=== PATIENT | female | born 1960 | race Caucasian/White ===

== ENCOUNTER 2016-08-07 10:31 | Emergency (ER) | payer BC, OTHER ==
[2016-08-07 10:46] VITALS: BP 146/79
[2016-08-07] MEDS ORDERED: Sodium Chloride 0.9% 10 ML Syringe FLUSH PRN (10:57)
[2016-08-07] MEDS ORDERED: Iopamidol 612 MG/ML 75 ML Bottle IVPUSH ONE (10:57)
--- NOTE | 2016-08-07 10:58 | EDM.PDOC ---
<Misty Herrera - Last Filed: 08/07/16 13:52> ED HPI GI/ABDOMINAL - General Chief Complaint: Abdominal Pain Stated Complaint: [id number] STOMACH CRAMPING HARD SPOT THROWING UP Time Seen by Provider: 08/07/16 10:53 Source of Information: Reports: Patient History Limitations: Reports: No limitations - History of Present Illness INITIAL COMMENTS - FREE TEXT/NARRATIVE: Patient presents to the ER with c/o N/V since . She states yesterday she began having more stomach pains and felt a hard tender area to the RLQ. 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 Admits to chills but no fever. She admits SOB at times when the abdomen is painful, but denies chest pain. She states she last had a bowel movement yesterday. She states she had her give her a Fleet's enema this morning with very little results of mucous stool. Symptom Onset Date: 08/04/16 Timing/Duration: Reports: Getting worse Location: RLQ Quality: Reports: fullness Severity: moderate Associated Symptoms (-Female): Reports: nausea/vomiting - Related Data Allergies/ADRs: Allergies Allergy/AdvReac Type Severity Reaction Status Date / Time erythromycin base Allergy Cannot Verified 08/07/16 11:31 Remember Home Meds: Home Meds Levothyroxine Sodium [Levothyroxine Sodium] 125 mcg PO DAILY 04/23/14 [History] Losartan Potassium [Losartan Potassium] 25 mg PO DAILY 04/23/14 [History] Raloxifene HCl [Raloxifene HCl] 60 mg PO DAILY 04/23/14 [History] atorvaSTATin Calcium [Atorvastatin Calcium] 80 mg PO DAILY 04/23/14 [History] glyBURIDE [Glyburide] 5 mg PO DAILY 04/23/14 [History] metFORMIN [Glucophage] 1,000 mg PO BID 04/23/14 [History] Social & Family History - Tobacco Use Smoking Status *Q: Never Smoker Second Hand Smoke Exposure: No - Alcohol Use Days Per Week of Alcohol Use: 0 - Recreational Drug Use Recreational Drug Use: No ED ROS GENERAL - Review of Systems Review Of Systems: See Below Constitutional: Reports: chills, decreased appetite HEENT: Reports: No symptoms Respiratory: Reports: shortness of breath Cardiovascular: Reports: No symptoms Endocrine: Reports: no symptoms GI/Abdominal: Reports: Abdominal pain, Decreased appetite, Mucous in stool, Vomiting : Reports: no symptoms Musculoskeletal: Reports: no symptoms Skin: Reports: no symptoms Neurological: Reports: no symptoms Psychiatric: Reports: No symptoms Hematologic/Lymphatic: Reports: no symptoms Immunologic: Reports: no symptoms ED EXAM, GI/ABD - Physical Exam Exam: See Below Exam Limited By: No limitations General Appearance: alert, WD/WN, no apparent distress Ears: normal external exam, hearing grossly normal Nose: normal inspection Throat/Mouth: Normal inspection, Normal voice, No airway compromise Head: atraumatic, normocephalic Neck: normal inspection Respiratory/Chest: no respiratory distress, lungs clear, normal breath sounds, no accessory muscle use, chest non-tender Cardiovascular: normal peripheral pulses, regular rate, rhythm, no JVD, no murmur, no rub GI/Abdominal: normal bowel sounds, soft, tenderness, guarding (Female) Exam: Deferred Rectal (Female) Exam: Deferred Back Exam: normal inspection, full range of motion, NT Extremities: normal inspection, normal range of motion, non-tender, normal capillary refill, no pedal edema Neurological: alert, oriented, CN II-XII intact, normal cognition, normal gait, normal reflexes, no motor/sensory deficits Psychiatric: normal affect, normal mood Skin Exam: Warm, Dry, Intact, Normal color, No rash, Other (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 DIRECTED Care 08/07/16 10:58 Active Abdomen 2V AP Flat Upright [CR] Stat Exams 08/07/16 10:53 Stop Req Abdomen Pelvis w Cont [CT] Stat Exams 08/07/16 10:55 Ordered LACTIC ACID [CHEM] Stat Lab 08/07/16 14:00 Received Sodium Chloride 0.9% [Saline Flush] Med 08/07/16 10:57 Active 10 ml FLUSH ASDIRECTED PRN Nasogastric Orogastric Tube Insertion [OM.PC] Routine Oth 08/07/16 12:23 Ordered Peripheral IV Insertion Adult [OM.PC] Stat Oth 08/07/16 10:57 Ordered Medication Orders Sodium Chloride (Saline Flush) 10 ml FLUSH ASDIRECTED PRN PRN Reason: Keep Vein Open Last Admin: 08/07/16 11:40 Dose: 10 ml Labs: Laboratory Tests 08/07/16 08/07/16 08/07/16 Range/Units 11:05 11:05 11:25 WBC 10.5 H (5.0-10.0) 10^3/uL RBC 4.99 (4.2-5.4) 10^6/uL Hgb 14.8 (12.0-16.0) g/dL Hct 45.1 (37.0-47.0) % MCV 90.4 (80-100) fL MCH 29.7 (27.0-34.0) pg MCHC 32.8 L (33.0-35.0) g/dL Plt Count 267 (150-450) 10^3/uL Neut % (Auto) 83.5 H (42.2-75.2) % Lymph % (Auto) 10.4 L (20.5-50.1) % [place] % (Auto) 5.5 (2-8) % Eos % (Auto) 0.3 L (1.0-3.0) % Baso % (Auto) 0.3 (0.0-1.0) % Sodium 138 (135-145) mmol/L Potassium 4.0 (3.6-5.0) mmol/L Chloride 103 (101-111) mmol/L Carbon Dioxide 26.0 (21.0-31.0) mmol/L Anion Gap 13.0 BUN 18 (7-18) mg/dL Creatinine 0.6 (0.6-1.3) mg/dL Est Cr Clr Drug Dosing 76.99 mL/min Estimated GFR (MDRD) > 60 BUN/Creatinine Ratio 30.00 Glucose 204 H (74-105) mg/dL Calcium 8.8 (8.4-10.2) mg/dl Total Bilirubin 0.6 (0.2-1.0) mg/dL AST 17 (10-42) IU/L ALT 28 (10-60) IU/L Alkaline Phosphatase 69 (42-121) IU/L Total Protein 6.3 L (6.7-8.2) g/dl Albumin 3.8 (3.2-5.5) g/dl Globulin 2.5 Albumin/Globulin Ratio 1.52 Urine Color Dark yellow (YELLOW) Urine Appearance Slightly cloudy (CLEAR) Urine pH 5.5 (5.0-9.0) Ur Specific [place] >= 1.030 (1.005-1.030) Urine Protein 30 H (NEGATIVE) Urine Glucose (UA) 100 H (NEGATIVE) Urine Ketones 80 H (NEGATIVE) Urine Occult Blood Trace-intact H (NEGATIVE) Urine Nitrite Negative (NEGATIVE) Urine Bilirubin Small H (NEGATIVE) Urine Urobilinogen 0.2 (0.2-1.0) mg/dL Ur Leukocyte Esterase Negative (NEGATIVE) Urine RBC 0-5 /HPF Urine WBC 0-5 (0-5/HPF) /HPF Ur Epithelial Cells Rare /HPF Urine Bacteria Rare (0-FEW/HPF) /HPF Meds: Medications Generic Name Dose Route Start Last Admin Trade Name Freq PRN Reason Stop Dose Admin Sodium Chloride 10 ml 08/07/16 10:57 08/07/16 11:40 Saline Flush FLUSH 10 ml ASDIRECTED PRN Administration Keep Vein Open Discontinued Medications Generic Name Dose Route Start Last Admin Trade Name Freq PRN Reason Stop Dose Admin Hydromorphone HCl 1 mg 08/07/16 12:23 08/07/16 12:38 Dilaudid IM 08/07/16 12:24 1 mg ONETIME ONE Administration Sodium Chloride 1,000 mls @ 999 mls/hr 08/07/16 12:11 08/07/16 13:52 Normal Saline IV 08/07/16 13:11 999 mls/hr .BOLUS ONE Administration Iopamidol 75 ml 08/07/16 10:57 Isovue-300 (61%) IVPUSH 08/07/16 10:58 ONETIME ONE Lorazepam 1 mg 08/07/16 12:22 08/07/16 13:52 Ativan IVPUSH 08/07/16 12:23 1 mg ONETIME ONE Administration Departure - Departure Disposition: DC/Tfer to Acute Hospital 02 Clinical Impression: Small bowel obstruction, Incarcerated hernia Abdominal pain Qualifiers: Abdominal location: right lower quadrant Qualified Code(s): R10.31 - Right lower quadrant pain Forms: ED Department Discharge, Interfacility Transfer EMTALA - My Orders Last 24 Hours: My Active Orders 08/07/16 14:00 LACTIC ACID [CHEM] Stat - Assessment/Plan Last 24 Hours: My Active Orders 08/07/16 14:00 LACTIC ACID [CHEM] Stat <Walter Perezian - Last Filed: 08/07/16 14:06> ED HPI GI/ABDOMINAL - History of Present Illness Context: Denies: sick contact, bad/questionable food, out of country travel, recent surgery, recent trauma, lifting, activity/exercise Past Medical History Cardiovascular History: Reports: High cholesterol, Hypertension Endocrine/Metabolic History: Reports: Diabetes, type II, Hypothyroidism, Obesity /BMI 30+, Other (see below) (Lilly's syndrome) Social & Family History - Family History Family Medical History: Noncontributory - Living Situation & Occupation Living situation: Reports: , with spouse Occupation: employed Course - Radiology Interpretation Free Text/Narrative:: CT abdomen and pelvis: Per rad report shows small bowel obstruction caused by incarcerated hernia through the anterior right pelvic wall. Evidence of slowed motility in the obstructed loops. Bowel thickening in the rectosigmoid may represent colitis versus decompressed bowel. Spondylilisthesis. - Re-Assessments/Exams Free Text/Narrative Re-Assessment/Exam: 08/07/16 11:48 FOR THIS ENCOUNTER THE PATIENT WAS SEEN IN CONJUNCTION WITH [facility] STUDENT MISTY HERRERA. ALL PATIENT CARE AND/OR PROCEDURE(S), DIAGNOSTIC ORDERS, MEDICATION(S) AND TREATMENT ORDERS, DISPOSITION ORDERS/PLANNING, AND DISCHARGE/FOLLOW UP INSTRUCTIONS WERE UNDER MY DIRECT SUPERVISION. gbd Departure - Departure Time of Disposition: 13:44 Condition: serious - My Orders Last 24 Hours: My Active Orders 08/07/16 14:00 LACTIC ACID [CHEM] Stat - Assessment/Plan Last 24 Hours: My Active Orders 08/07/16 14:00 LACTIC ACID [CHEM] Stat
[2016-08-07 11:29] LABS: CHLORIDE,CL 103 mmol/L (101-111); SODIUM,NA 138 mmol/L (135-145)
[2016-08-07] MEDS ORDERED: Sodium Chloride 0.9% 1,000 ML IV ONE (12:11)
[2016-08-07] MEDS ORDERED: LORazepam 2 MG/ML Syringe IVPUSH ONE (12:22)
[2016-08-07] MEDS ORDERED: HYDROmorphone 1 MG/ML Syringe IM ONE (12:23)
== END 2016-08-07 14:55 ==
LOC: DL.ED 10:31
DX: K43.6 Other and unspecified ventral hernia with obstruction, without gangrene (principal); I10 Essential (primary) hypertension; E78.00 Pure hypercholesterolemia, unspecified; E11.9 Type 2 diabetes mellitus without complications; Z79.84 Long term (current) use of oral hypoglycemic drugs; E03.9 Hypothyroidism, unspecified; E66.9 Obesity, unspecified; Z68.30 Body mass index [BMI] 30.0-30.9, adult; Q96.9 Turner's syndrome, unspecified; Z79.899 Other long term (current) drug therapy; Z88.1 Allergy status to other antibiotic agents
CPT/HCPCS: 36415; 74177; 80053; 81001; 83605; 85025; 96361; 96374; 96375; 99285; J1170; J2060; J7030; J7050; Q9967

== ENCOUNTER 2019-07-26 16:36 | Emergency (ER) | payer OTHER ==
[2019-07-26 17:46] VITALS: BP 121/80; PULSE 77
--- NOTE | 2019-07-26 17:54 | EDM.PDOC ---
<Vinicio Olivera - Last Filed: 07/26/19 19:09> ED HPI GENERAL MEDICAL PROBLEM - General Chief Complaint: Abdominal Pain Stated Complaint: UPSET STOMACH, LOOSE MAURA Time Seen by Provider: 07/26/19 17:40 Source of Information: Reports: Patient History Limitations: Reports: No Limitations - History of Present Illness INITIAL COMMENTS - FREE TEXT/NARRATIVE: This 59 yo female patient was sent to the ED from [facility] due to left lower abdominal pain. The patient reports her symptoms started 2 weeks ago, but have been getting worse over the past several days. The patient reports her symptoms are similar to her symptoms when she had a hernia. The patient reports she eventually had her hernia operated on. The patient reports she was having loose bowel movements today. Duration: Week(s):, Constant, Getting Worse Location: Reports: Abdomen (LLQ) Quality: Reports: Ache, Dull Severity: Moderate Improves with: Reports: None Worsens with: Reports: None Context: Reports: Other Abdomen Pain Score (Numeric/FACES): 8 - Related Data Allergies Allergy/AdvReac Type Severity Reaction Status Date / Time erythromycin base Allergy Cannot Verified 07/26/19 17:46 Remember Home Meds: Home Meds Levothyroxine Sodium 125 mcg PO DAILY 04/23/14 [History] Losartan Potassium 25 mg PO DAILY 04/23/14 [History] Raloxifene HCl 60 mg PO DAILY 04/23/14 [History] atorvaSTATin Calcium [Atorvastatin Calcium] 80 mg PO DAILY 04/23/14 [History] glyBURIDE [Glyburide] 5 mg PO DAILY 04/23/14 [History] metFORMIN [Glucophage] 1,000 mg PO BID 04/23/14 [History] Past Medical History HEENT History: Reports: Hard of Hearing, Impaired Vision Other HEENT History: wears glasses, has hearing aides not in at present Cardiovascular History: Reports: High Cholesterol, Hypertension Respiratory History: Reports: None Gastrointestinal History: Reports: None Genitourinary History: Reports: None SENIOR PREMIUM AUDITOR History: Reports: None Musculoskeletal History: Reports: None Neurological History: Reports: None Psychiatric History: Reports: None Endocrine/Metabolic History: Reports: Diabetes, Type II, Hypothyroidism, Obesity /BMI 30+, Other (See Below) Hematologic History: Reports: None Immunologic History: Reports: None Oncologic (Cancer) History: Reports: None Dermatologic History: Reports: None - Infectious Disease History Infectious Disease History: Reports: Chicken Pox, Mumps - Past Surgical History Head Surgeries/Procedures: Reports: None GI Surgical History: Reports: Appendectomy Female Surgical History: Reports: Other (See Below) Social & Family History - Family History Family Medical History: Noncontributory - Tobacco Use Smoking Status *Q: Never Smoker - Caffeine Use Caffeine Use: Reports: Soda - Recreational Drug Use Recreational Drug Use: No - Living Situation & Occupation Living situation: Reports: , with Spouse Occupation: Employed ED ROS GENERAL - Review of Systems Review Of Systems: Comprehensive ROS is negative, except as noted in HPI. ED EXAM, GI/ABD - Physical Exam Exam: See Below Exam Limited By: No Limitations General Appearance: Alert, WD/WN, No Apparent Distress Eyes: Bilateral: Normal Appearance, EOMI Ears: Normal External Exam, Normal Canal, Hearing Grossly Normal, Normal TMs Nose: Normal Inspection, Normal Mucosa, No Blood Throat/Mouth: Normal Inspection, Normal Lips, Normal Teeth, Normal Gums, Normal Oropharynx, Normal Voice, No Airway Compromise Head: Atraumatic, Normocephalic Neck: Normal Inspection, Supple, Non-Tender, Full Range of Motion Respiratory/Chest: No Respiratory Distress, Lungs Clear, Normal Breath Sounds, No Accessory Muscle Use, Chest Non-Tender Cardiovascular: Normal Peripheral Pulses, Regular Rate, Rhythm, No Edema, No Gallop, No JVD, No Murmur, No Rub GI/Abdominal Exam: Normal Bowel Sounds, No Organomegaly, No Distention, No Abnormal Bruit, Pelvis Stable, Tender (LLQ), Hernia (LLQ reduced while palpating the lower abdomen.), Other (obese) (Female) Exam: Deferred Rectal (Female) Exam: Deferred Back Exam: Normal Inspection, Full Range of Motion, NT Extremities: Normal Inspection, Normal Range of Motion, Non-Tender, Normal Capillary Refill, No Pedal Edema Neurological: Alert, Oriented, CN II-XII Intact, Normal Cognition, Normal Gait, Normal Reflexes, No Motor/Sensory Deficits Psychiatric: Normal Affect, Normal Mood Skin Exam: Warm, Dry, Intact, Normal Color, No Rash Lymphatic: No Adenopathy Course - Vital Signs Last Recorded V/S: Last Vital Signs Temp 97.6 F 07/26/19 17:41 Pulse 77 07/26/19 17:41 Resp 16 07/26/19 17:41 BP 121/80 07/26/19 17:41 Pulse Ox 96 07/26/19 17:41 - Orders/Labs/Meds Labs: Laboratory Tests 07/26/19 07/26/19 07/26/19 Range/Units 18:14 18:15 18:15 WBC 10.0 (5.0-10.0) 10^3/uL RBC 4.81 (4.2-5.4) 10^6/uL Hgb 14.4 (12.0-16.0) g/dL Hct 44.2 (37.0-47.0) % MCV 91.9 (80-100) fL MCH 29.9 (27.0-34.0) pg MCHC 32.6 L (33.0-35.0) g/dL Plt Count 318 (150-450) 10^3/uL Neut % (Auto) 59.4 (42.2-75.2) % Lymph % (Auto) 26.7 (20.5-50.1) % [place] % (Auto) 8.7 H (2-8) % Eos % (Auto) 4.6 H (1.0-3.0) % Baso % (Auto) 0.6 (0.0-1.0) % Sodium 139 (135-145) mmol/L Potassium 3.6 (3.6-5.0) mmol/L Chloride 104 (101-111) mmol/L Carbon Dioxide 27.0 (21.0-31.0) mmol/L Anion Gap 11.6 BUN 12 (7-18) mg/dL Creatinine 0.8 (0.6-1.3) mg/dL Est Cr Clr Drug Dosing 55.73 mL/min Estimated GFR (MDRD) > 60 BUN/Creatinine Ratio 15.00 Glucose 110 H (74-105) mg/dL Calcium 9.5 (8.4-10.2) mg/dl Total Bilirubin 0.5 (0.2-1.0) mg/dL AST 21 (10-42) IU/L ALT 31 (10-60) IU/L Alkaline Phosphatase 81 (42-121) IU/L Total Protein 6.6 L (6.7-8.2) g/dl Albumin 4.1 (3.2-5.5) g/dl Globulin 2.5 Albumin/Globulin Ratio 1.64 Urine Color Yellow (YELLOW) Urine Appearance Slightly cloudy (CLEAR) Urine pH 6.0 (5.0-9.0) Ur Specific [place] 1.010 (1.005-1.030) Urine Protein Negative (NEGATIVE) Urine Glucose (UA) Negative (NEGATIVE) Urine Ketones Negative (NEGATIVE) Urine Occult Blood Trace-intact H (NEGATIVE) Urine Nitrite Negative (NEGATIVE) Urine Bilirubin Negative (NEGATIVE) Urine Urobilinogen 0.2 (0.2-1.0) mg/dL Ur Leukocyte Esterase Small H (NEGATIVE) Urine RBC 0-5 /HPF Urine WBC 10-20 H (0-5/HPF) /HPF Ur Epithelial Cells Few (NOT SEEN) /HPF Urine Bacteria Few (0-FEW/HPF) /HPF Meds: Medications Discontinued Medications Generic Name Dose Route Start Last Admin Trade Name Freq PRN Reason Stop Dose Admin Ciprofloxacin 500 mg 07/26/19 20:03 07/26/19 20:07 Ciprofloxacin Hcl PO 07/26/19 20:04 500 mg ONETIME ONE Administration Departure - Departure Disposition: Home, Self-Care 01 Clinical Impression: Abdominal pain Qualifiers: Abdominal location: right lower quadrant Qualified Code(s): R10.31 - Right lower quadrant pain - Discharge Information Instructions: Abdominal Pain, Adult, Urinary Tract Infection, Adult Referrals: Brittny Ferraro [Primary Care Provider] - Forms: ED Department Discharge Additional Instructions: increase fluid light diet clinic follow up on Monday, sooner if increased pain, fever chills vomiting No lifting greater than 10 # for one week don't strain with bowel movments cipro 500mg one twice daily for 5 days Sepsis Event Note - Evaluation Sepsis Screening Result: No Definite Risk - Focused Exam Date Exam was Performed: 07/26/19 Time Exam was Performed: 19:09 <Kalyn Ellis - Last Filed: 07/28/19 02:55> Course - Re-Assessments/Exams Free Text/Narrative Re-Assessment/Exam: reports some mild discomfort but improved from presentation. Results of labs reviewed with patient. Follow up with PCP is recommended. Departure - Departure Time of Disposition: 20:05 Condition: Good - Discharge Information *PRESCRIPTION DRUG MONITORING PROGRAM REVIEWED*: No *COPY OF PRESCRIPTION DRUG MONITORING REPORT IN PATIENT ZACARIAS: No Sepsis Event Note - Focused Exam Date Exam was Performed: 07/28/19 Time Exam was Performed: 02:54
[2019-07-26 18:41] LABS: ANION GAP 11.6; CHLORIDE,CL 104 mmol/L (101-111); SODIUM,NA 139 mmol/L (135-145)
[2019-07-26] MEDS ORDERED: Ciprofloxacin 500 MG Tab PO ONE (20:03)
== END 2019-07-26 20:11 | disposition home or self-care (01) ==
LOC: DL.ED 16:36
DX: R10.31 Right lower quadrant pain (principal); I10 Essential (primary) hypertension; E11.9 Type 2 diabetes mellitus without complications; Z88.1 Allergy status to other antibiotic agents; Z79.899 Other long term (current) drug therapy
CPT/HCPCS: 36415; 80053; 81001; 85025; 87086; 87088; 87186; 99284; A9270

== ENCOUNTER 2021-03-13 00:28 | Emergency (ER) | payer OTHER ==
[2021-03-13] MEDS ORDERED: predniSONE 20 MG Tab PO ONE (00:44)
[2021-03-13] MEDS ORDERED: Gabapentin 300 MG Cap PO ONE (00:44)
--- NOTE | 2021-03-13 00:44 | EDM.PDOC ---
ED HPI GENERAL MEDICAL PROBLEM - General Chief Complaint: ENT Problem Stated Complaint: PAIN IN LEFT EAR Time Seen by Provider: 03/13/21 00:38 - History of Present Illness INITIAL COMMENTS - FREE TEXT/NARRATIVE: Pt is here for left ear pain that started about 30 minutes prior to arrival. She noted that the pain came on out of no where. It is a sharp, shooting, burning pain that radiates to her head, behind her ear and down her neck. She has never had this before. She is recovering from COVID which she had about 1.5 weeks ago. She denies any fevers or chills. No tinnitus or decreased hearing. She has not noted any rash. - Related Data Allergies Allergy/AdvReac Type Severity Reaction Status Date / Time demeclocycline Allergy Nausea and Verified 03/05/21 09:52 [From Declomycin] Vomiting erythromycin base Allergy Cannot Verified 03/05/21 09:52 Remember Home Meds: Home Meds Levothyroxine Sodium 125 mcg PO DAILY 04/23/14 [History] Losartan Potassium 25 mg PO DAILY 04/23/14 [History] Raloxifene HCl 60 mg PO DAILY 04/23/14 [History] atorvaSTATin Calcium [Atorvastatin Calcium] 40 mg PO DAILY 04/23/14 [History] glyBURIDE [Glyburide] 10 mg PO DAILY 04/23/14 [History] metFORMIN [Glucophage] 1,000 mg PO BID 04/23/14 [History] Albuterol [Take Home: Albuterol 18 GM, 1 INH Pack] 1 puff INH QID PRN MDD 4 03/05/21 [History] Aspirin [Ecotrin EC] 81 mg PO DAILY 03/05/21 [History] Cinnamon Bark [Cinnamon] 500 mg PO DAILY 03/05/21 [History] Past Medical History HEENT History: Reports: Hard of Hearing, Impaired Vision Other HEENT History: wears glasses, has bilateral hearing aides Cardiovascular History: Reports: High Cholesterol, Hypertension Respiratory History: Reports: None, SOB Gastrointestinal History: Reports: None Genitourinary History: Reports: None DIRECT SELLING COUNSELOR History: Reports: None Musculoskeletal History: Reports: Fracture Other Musculoskeletal History: left pinky finger Neurological History: Reports: None Psychiatric History: Reports: None, Anxiety, Depression Endocrine/Metabolic History: Reports: Diabetes, Type II, Hypothyroidism, Obesity/BMI 30+, Other (See Below) Other Endocrine/Metabolic History: Lilly Syndrom Hematologic History: Reports: None Immunologic History: Reports: None Oncologic (Cancer) History: Reports: None Dermatologic History: Reports: None - Infectious Disease History Infectious Disease History: Reports: Chicken Pox, Meningitis, Mumps, Novel Coronavirus, Shingles - Past Surgical History Head Surgeries/Procedures: Reports: None HEENT Surgical History: Reports: Oral Surgery GI Surgical History: Reports: Appendectomy Female Surgical History: Reports: Other (See Below) Other Female Surgeries/Procedures: ovarian biopsy Social & Family History - Family History Family Medical History: No Pertinent Family History - Caffeine Use Caffeine Use: Reports: Soda - Living Situation & Occupation Living situation: Reports: , with Spouse Occupation: Employed ED ROS ENT - Review of Systems Review Of Systems: Comprehensive ROS is negative, except as noted in HPI. ED EXAM, ENT - Physical Exam Exam: See Below Exam Limited By: No Limitations General Appearance: Alert, WD/WN, No Apparent Distress Eye Exam: Bilateral Eye: Normal Inspection Ears: Normal External Exam, Normal Canal, Normal TMs, Other (skin in/around ear tender to light touch, no rash visible at this time). No: Auricular Erythema, Auricular Ecchymosis, Mastoid Swelling, Canal Discharge, Canal Swelling Nose: Normal Inspection Mouth/Throat: Normal Inspection Head: Atraumatic, Normocephalic Neck: Normal Inspection, Supple Respiratory/Chest: No Respiratory Distress, No Accessory Muscle Use Cardiovascular: Normal Peripheral Pulses, Regular Rate, Rhythm GI/Abdominal: No Distention (Female) Exam: Deferred Rectal (Female) Exam: Deferred Back: Full Range of Motion Extremities: Normal Inspection, Normal Range of Motion Neurological: Alert, Oriented, Normal Cognition Psychiatric: Normal Affect, Normal Mood Skin: Warm, Dry, Intact, Normal Color, No Rash Lymphatic: No Adenopathy Course - Re-Assessments/Exams Free Text/Narrative Re-Assessment/Exam: Discussed with the pt that her symptoms were consistent with early presentation of Malu Cordova syndrome especially with her recent illness that would have stressed her body. Discussed treatment with steroids as well as starting the anti-virals when the lesions present. If no lesions are present by monday, she is to call her PCP and be re-evaluated. Reassured pt that there is no indication for antibiotics at this time. 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
[2021-03-13 01:00] VITALS: BP 139/103; PULSE 73
== END 2021-03-13 01:01 | disposition home or self-care (01) ==
LOC: DL.ED 00:28
DX: B02.21 Postherpetic geniculate ganglionitis (principal); I10 Essential (primary) hypertension; E78.00 Pure hypercholesterolemia, unspecified; E11.9 Type 2 diabetes mellitus without complications; E03.9 Hypothyroidism, unspecified; E66.9 Obesity, unspecified; Z88.1 Allergy status to other antibiotic agents; Z79.82 Long term (current) use of aspirin; Z79.84 Long term (current) use of oral hypoglycemic drugs; Z79.899 Other long term (current) drug therapy
CPT/HCPCS: 99282; A9270; J7512